=== PATIENT | female | born 1990 | race Two or more races ===

== ENCOUNTER 2022-08-23 08:51 | Day surgery (SDC) | payer OTHER ==
[~2022-08-23] VITALS: Ht 149.9 cm; Wt 71.2 kg
== END 2022-08-23 19:00 | disposition home or self-care (01) ==
LOC: CIR.AMB 08:51
PROVIDERS: ATTEND Colon & Rectal Surgery
DX: K60.3 Anal fistula (principal); Z20.822 Contact with and (suspected) exposure to COVID-19

== ENCOUNTER 2022-12-06 07:43 | Day surgery (SDC) | payer OTHER | END 2022-12-06 20:20 | disposition home or self-care (01) | LOC: CIR.AMB 07:43 | PROVIDERS: ATTEND Colon & Rectal Surgery | DX: K60.3 Anal fistula (principal); Z20.822 Contact with and (suspected) exposure to COVID-19; L92.8 Other granulomatous disorders of the skin and subcutaneous tissue ==

== ENCOUNTER 2024-04-23 09:44 | Day surgery (SDC) | payer OTHER ==
[2024-04-23] MEDS ORDERED: HEMOSTATIC MATRIX 1 KIT KIT TOP ONE (11:20)
[2024-04-23] MEDS ORDERED: POVIDONE-IODINE 118 ML BOTT TOP ONE ×2 (11:21→13:00)
[2024-04-23] MEDS ORDERED: LIDOCAINE HCL 1%/EPINEPHRINE 20ML VIAL IJ ONE ×2 (11:21→13:00)
[2024-04-23] MEDS ORDERED: BUPIVACAINE HCL/MPF 0.5% 30ML VIAL ONE (11:21)
[2024-04-23] MEDS ORDERED: DIBUCAINE 30 GM TUBE ONE (11:21)
[2024-04-23] MEDS ORDERED: HYDROGEN PEROXIDE 473 ML BOTTLE TOP ONE (11:23)
[2024-04-23] MEDS ORDERED: METRONIDAZOLE/SODIUM CHLORIDE 500 MG/100 ML PIGGYBACK IV ONE ×2 (11:23→13:00)
[2024-04-23] MEDS ORDERED: DIBUCAINE 15 GM OINT..GM. TUBE RECTAL ONE (13:00)
[2024-04-23] MEDS ORDERED: BUPIVACAINE HCL/PF 0.25% 30ML VIAL InF ONE (13:00)
[2024-04-23] MEDS ORDERED: HYDROGEN PEROXIDE 118 ML SOLUTION TOP ONE (13:00)
== END 2024-04-23 18:00 | disposition home or self-care (01) ==
LOC: CIR.AMB 09:44
PROVIDERS: ATTEND Colon & Rectal Surgery
DX: K60.3 Anal fistula (principal); L92.9 Granulomatous disorder of the skin and subcutaneous tissue, unspecified

== ENCOUNTER 2025-02-06 09:40 | Day surgery (SDC) | payer OTHER ==
[2025-02-06] MEDS ORDERED: ONDANSETRON HCL 2 MG/ML VIAL IV ONE (13:30)
[2025-02-06] MEDS ORDERED: DIPHENHYDRAMINE HCL 50 MG/ML VIAL 1ML IV ONE (13:30)
[2025-02-06] MEDS ORDERED: fentaNYL CITRATE 50 MCG/ML AMPUL IV PUSH ONE (13:30)
[2025-02-06] MEDS ORDERED: MIDAZOLAM HCL 2 MG/2 ML VIAL IV ONE (13:30)
== END 2025-02-06 14:30 | disposition home or self-care (01) ==
LOC: AMB-ENDOS 09:40
PROVIDERS: ATTEND Colon & Rectal Surgery
DX: K62.5 Hemorrhage of anus and rectum (principal); K64.8 Other hemorrhoids; R19.4 Change in bowel habit; Z12.11 Encounter for screening for malignant neoplasm of colon